=== PATIENT | male | born 1965 | race Caucasian/White ===

== ENCOUNTER 2021-10-18 21:38 | Inpatient (IN) ==
[2021-10-19] MEDS ORDERED: Naloxone 0.4 MG/ML INJ IVP PRN ×2 (00:08→09:39)
[2021-10-19] MEDS ORDERED: Ondansetron 4 MG/2 ML VIAL IVP PRN (00:08)
[2021-10-19] MEDS: Clindamycin 600 MG/50 ML 600 MG/50 ML IV.SOLN IVPB SCH ×3 (01:23→16:42)
[2021-10-19] MEDS: Ketorolac 30 MG/ML VIAL IM PRN ×2 (01:23→07:51)
[2021-10-19] MEDS: 0.9 % Sodium Chloride 1,000 ML IVC SCH ×2 (01:23→11:23)
[2021-10-19 05:09] LABS: Hematocrit 36.9 % (37.5-50.1); Hemoglobin 12.3 g/dL (12.9-16.9); Mean Corpuscular HGB Conc 33.3 g/dL (31.6-35.5); Mean Corpuscular Hemoglobin 28.7 pg (28.0-33.3); Mean Platelet Volume 8.8 fL (9.4-12.4); Platelet Count 212 K/mcL (140-400); Red Blood Count 4.29 M/mcL (4.19-5.50); Red Cell Distribution Width 12.4 % (11.5-14.5); White Blood Count 8.3 K/mcL (4.3-11.1)
[2021-10-19 05:31] LABS: BUN/Creatinine Ratio 19 (6-26); Blood Urea Nitrogen 17 mg/dL (6-20); Calcium 8.3 mg/dL (8.6-10.3); Carbon Dioxide 26 mEq/L (23-29); Chloride 106 mEq/L (98-107); Glucose 123 mg/dL (70-105); Osmolality,Calculated 291 (280-300); Potassium 3.3 mEq/L (3.5-5.1); Sodium 139 mEq/L (136-145)
[2021-10-19] MEDS: Vancomycin 1,750 MG/517.5 ML IV.SOLN IVPB SCH ×2 (07:50→21:46)
[2021-10-19] MEDS ORDERED: Piperacillin/Tazobactam 3.375 GM in 0.9 % Sodium Chloride Mini Bag 100 ML IVPB SCH (08:00)
[2021-10-19] MEDS ORDERED: Acetaminophen IV 1,000 MG/100 ML BAG IVPB ONE (09:40)
[2021-10-19] MEDS ORDERED: Famotidine 20 MG/2 ML VIAL IVP ONE (11:32)
[2021-10-19] MEDS: levoFLOXacin 750 MG/150 ML 750 MG/150 ML BAG IVPB SCH (13:19)
[2021-10-19] MEDS ORDERED: *HR* Propofol 200 MG/20 ML VIAL IVP ONE (13:44)
[2021-10-19] MEDS ORDERED: *HR* FentaNYL (PF) 100 MCG/2 ML VIAL ONE (13:45)
[2021-10-19] MEDS ORDERED: Ondansetron 4 MG/2 ML VIAL ONE (13:45)
[2021-10-19] MEDS ORDERED: *HR* Midazolam HCl 2 MG/2 ML VIAL ONE (13:45)
[2021-10-19] MEDS ORDERED: Lidocaine -MPF 2% 5 ML VIAL ONE (13:45)
[2021-10-19] MEDS ORDERED: *HR* Succinylcholine 200 MG/10 ML VIAL IVP ONE (13:58)
[2021-10-19] MEDS ORDERED: Lidocaine HCL 4 ML Topical Solution (Laryng-O-Jet Kit Sterile Pak) TP ONE (13:58)
[2021-10-19] MEDS ORDERED: *HR* Rocuronium Bromide 50 MG/5 ML VIAL ONE (13:58)
[2021-10-19] MEDS ORDERED: Lidocaine/EPI 1:100k 1% 20 ML VIAL ONE (14:03)
[2021-10-19] MEDS: *HR* HYDROmorphone PF 0.5 MG/0.5 ML SYRINGE IVP PRN ×3 (15:36→15:54)
[2021-10-19] MEDS: *HR* OxyCODONE Immed Rel 5 MG TABLET PO PRN (21:46)
[2021-10-20] MEDS: Clindamycin 600 MG/50 ML 600 MG/50 ML IV.SOLN IVPB SCH ×4 (02:08→23:59)
[2021-10-20] MEDS: Acetaminophen 325 MG TABLET PO PRN (02:21)
[2021-10-20 05:08] LABS: Basophils % 0.1 %; Hemoglobin 11.2 g/dL (12.9-16.9); Immature Granulocytes % 0.3 % (0-4); Lymphocytes # 0.9 K/mcL (0.6-4.6); Lymphocytes % 9.1 %; Mean Corpuscular HGB Conc 32.9 g/dL (31.6-35.5); Mean Corpuscular Hemoglobin 28.2 pg (28.0-33.3); Mean Corpuscular Volume 85.6 fL (83.0-100.0); Monocytes # 0.4 K/mcL (0.0-1.3); Neutrophils # 8.7 K/mcL (1.6-8.9); Platelet Count 218 K/mcL (140-400); Red Blood Count 3.97 M/mcL (4.19-5.50); Red Cell Distribution Width 11.9 % (11.5-14.5); Segmented Neutrophils % 86.5 %
[2021-10-20 05:51] LABS: BUN/Creatinine Ratio 18 (6-26); Blood Urea Nitrogen 14 mg/dL (6-20); Calcium 8.1 mg/dL (8.6-10.3); Carbon Dioxide 23 mEq/L (23-29); Chloride 106 mEq/L (98-107); Glucose 149 mg/dL (70-105); Osmolality,Calculated 283 (280-300); Potassium 4.3 mEq/L (3.5-5.1); Sodium 135 mEq/L (136-145)
[2021-10-20] MEDS: Vancomycin 1,750 MG/517.5 ML IV.SOLN IVPB SCH (08:04)
[2021-10-20] MEDS: levoFLOXacin 750 MG/150 ML 750 MG/150 ML BAG IVPB SCH (08:10)
[2021-10-20] MEDS: 0.9 % Sodium Chloride 1,000 ML IVC SCH (17:52)
[2021-10-20] MEDS: *HR* OxyCODONE Immed Rel 5 MG TABLET PO PRN (18:48)
[2021-10-20] MEDS: Vancomycin 2,000 MG/520 ML IV.SOLN IVPB SCH (20:22)
[2021-10-21] MEDS: Vancomycin 2,000 MG/520 ML IV.SOLN IVPB SCH (08:00)
[2021-10-21 08:04] LABS: Basophils % 0.4 %; Eosinophils # 0.2 K/mcL (0.0-0.6); Eosinophils % 3.2 %; Hemoglobin 10.6 g/dL (12.9-16.9); Immature Granulocytes % 0.4 % (0-4); Lymphocytes % 28.8 %; Mean Corpuscular HGB Conc 32.1 g/dL (31.6-35.5); Mean Corpuscular Hemoglobin 28.1 pg (28.0-33.3); Mean Corpuscular Volume 87.5 fL (83.0-100.0); Mean Platelet Volume 8.8 fL (9.4-12.4); Monocytes # 0.4 K/mcL (0.0-1.3); Monocytes % 5.9 %; Neutrophils # 4.2 K/mcL (1.6-8.9); Platelet Count 210 K/mcL (140-400); Red Blood Count 3.77 M/mcL (4.19-5.50); Red Cell Distribution Width 12.3 % (11.5-14.5); Segmented Neutrophils % 61.3 %; White Blood Count 6.9 K/mcL (4.3-11.1)
[2021-10-21 08:28] LABS: BUN/Creatinine Ratio 14 (6-26); Blood Urea Nitrogen 12 mg/dL (6-20); Calcium 7.9 mg/dL (8.6-10.3); Carbon Dioxide 27 mEq/L (23-29); Chloride 109 mEq/L (98-107); Glucose 89 mg/dL (70-105); Magnesium 1.9 mg/dL (1.6-2.6); Osmolality,Calculated 291 (280-300); Potassium 3.8 mEq/L (3.5-5.1); Sodium 141 mEq/L (136-145)
[2021-10-21] MEDS: Lactobacillus 1 EACH CAP.SPRINK PO SCH ×2 (10:17→21:10)
[2021-10-21] MEDS: levoFLOXacin 750 MG/150 ML 750 MG/150 ML BAG IVPB SCH (10:18)
[2021-10-21] MEDS: Clindamycin 600 MG/50 ML 600 MG/50 ML IV.SOLN IVPB SCH (10:18)
[2021-10-21] MEDS: Acetaminophen 325 MG TABLET PO PRN (17:06)
[2021-10-21] MEDS: *HR* Heparin 5,000 UNIT/ML VIAL SQ SCH (17:08)
[2021-10-22] MEDS: *HR* Heparin 5,000 UNIT/ML VIAL SQ SCH ×2 (06:33→17:35)
[2021-10-22] MEDS: Lactobacillus 1 EACH CAP.SPRINK PO SCH ×2 (10:01→20:27)
[2021-10-22] MEDS: levoFLOXacin 750 MG/150 ML 750 MG/150 ML BAG IVPB SCH (10:01)
[2021-10-22] MEDS: Acetaminophen 325 MG TABLET PO PRN ×2 (10:03→17:35)
[2021-10-22 12:05] LABS: Basophils # 0.1 K/mcL (0.0-0.2); Basophils % 0.7 %; Eosinophils # 0.2 K/mcL (0.0-0.6); Eosinophils % 2.8 %; Hematocrit 36.9 % (37.5-50.1); Immature Granulocytes % 0.6 % (0-4); Lymphocytes # 1.6 K/mcL (0.6-4.6); Lymphocytes % 23.5 %; Mean Corpuscular HGB Conc 33.3 g/dL (31.6-35.5); Mean Corpuscular Hemoglobin 28.2 pg (28.0-33.3); Mean Corpuscular Volume 84.6 fL (83.0-100.0); Mean Platelet Volume 8.5 fL (9.4-12.4); Monocytes # 0.5 K/mcL (0.0-1.3); Monocytes % 7.4 %; Neutrophils # 4.5 K/mcL (1.6-8.9); Platelet Count 256 K/mcL (140-400); Red Blood Count 4.36 M/mcL (4.19-5.50); White Blood Count 6.9 K/mcL (4.3-11.1)
[2021-10-22 12:06] LABS: Hemoglobin 12.3 g/dL (12.9-16.9)
[2021-10-22 12:18] LABS: BUN/Creatinine Ratio 15 (6-26); Blood Urea Nitrogen 12 mg/dL (6-20); Calcium 8.5 mg/dL (8.6-10.3); Carbon Dioxide 26 mEq/L (23-29); Chloride 105 mEq/L (98-107); Glucose 102 mg/dL (70-105); Osmolality,Calculated 286 (280-300); Sodium 138 mEq/L (136-145)
[2021-10-23 02:06] LABS: Basophils # 0.1 K/mcL (0.0-0.2); Basophils % 0.8 %; Eosinophils # 0.2 K/mcL (0.0-0.6); Hemoglobin 12.2 g/dL (12.9-16.9); Immature Granulocytes % 0.5 % (0-4); Lymphocytes # 2.2 K/mcL (0.6-4.6); Lymphocytes % 29.1 %; Mean Corpuscular Hemoglobin 27.8 pg (28.0-33.3); Mean Corpuscular Volume 84.3 fL (83.0-100.0); Mean Platelet Volume 8.6 fL (9.4-12.4); Monocytes # 0.5 K/mcL (0.0-1.3); Monocytes % 6.2 %; Neutrophils # 4.5 K/mcL (1.6-8.9); Platelet Count 256 K/mcL (140-400); Red Blood Count 4.39 M/mcL (4.19-5.50); Red Cell Distribution Width 11.9 % (11.5-14.5); Segmented Neutrophils % 60.4 %; White Blood Count 7.4 K/mcL (4.3-11.1)
[2021-10-23 02:28] LABS: BUN/Creatinine Ratio 22 (6-26); Blood Urea Nitrogen 17 mg/dL (6-20); Calcium 8.6 mg/dL (8.6-10.3); Carbon Dioxide 26 mEq/L (23-29); Chloride 107 mEq/L (98-107); Glucose 112 mg/dL (70-105); Osmolality,Calculated 292 (280-300); Potassium 3.9 mEq/L (3.5-5.1); Sodium 140 mEq/L (136-145)
[2021-10-23 05:06] VITALS: PULSE 76
[2021-10-23] MEDS: *HR* Heparin 5,000 UNIT/ML VIAL SQ SCH (05:36)
[2021-10-23 07:44] VITALS: BP 130/87; TEMP 98.2; O2SAT 97
[2021-10-23] MEDS: levoFLOXacin 750 MG/150 ML 750 MG/150 ML BAG IVPB SCH (08:16)
[2021-10-23] MEDS: Lactobacillus 1 EACH CAP.SPRINK PO SCH (08:16)
== END 2021-10-23 12:23 | disposition home or self-care (01) | DRG 570 ==
LOC: 4WAOSI → SUATTDRO 23:26
PROVIDERS: ADMIT Internal Medicine; ATTEND Internal Medicine